=== PATIENT | female | born 1990 | race African-American/Black ===

== ENCOUNTER 2016-11-01 20:16 | Emergency (ER) | payer MEDICAID, OTHER ==
[~2016-11-01] VITALS: Ht 157.5 cm; Wt 45.0 kg
[~2016-11-01 20:16] MED LIST: MICO45CR7; OMEP20TA80; OMEPRAZOLE; ONDA4TAB50; PENI500T
[2016-11-01 20:27] VITALS: BP 128/98
== END 2016-11-02 00:10 | disposition left against medical advice (07) ==
LOC: ER 21:29
DX: Z53.21 Procedure and treatment not carried out due to patient leaving prior to being seen by health care provider (principal)

== ENCOUNTER 2016-11-19 22:30 | Emergency (ER) | payer OTHER ==
[~2016-11-19 22:30] MED LIST changes: +MICO45CR16; -MICO45CR7; +OMEP20TA2; -OMEP20TA80
== END 2016-11-19 23:43 | disposition left against medical advice (07) ==
LOC: ER 23:39
DX: R51 Headache (principal); Z53.21 Procedure and treatment not carried out due to patient leaving prior to being seen by health care provider

== ENCOUNTER 2017-07-01 20:59 | Emergency (ER) | payer OTHER ==
[~2017-07-01] VITALS: Ht 162.6 cm; Wt 59.0 kg
[2017-07-01 21:54] VITALS: BP 130/80
== END 2017-07-02 00:30 | disposition left against medical advice (07) ==
LOC: ER 21:52
DX: Z53.21 Procedure and treatment not carried out due to patient leaving prior to being seen by health care provider (principal); I10 Essential (primary) hypertension